=== PATIENT | female | born 1995 | race Caucasian/White ===

== ENCOUNTER → 2016-09-23 | Outpatient (CLI) | payer BC ==
[~2016-09-23] MED LIST: CYCL10TA9 PO; FERR-54 PO; HYDR-3812 PO; MULT-301 PO
--- OUTSIDE RECORDS SUMMARY | 2016-09-23 10:08 | XMS REPORT | Continuity of Care Document ---
Author Author [facility] Address Unknown Phone Unavailable Allergies Medications Problems Date Dx Coded Attending Type Code Diagnosis Diagnosed By 08/16/2014 RASHIDA TORRES APRN 461.9 SINUSITIS ACUTE 08/16/2014 RASHIDA TORRES APRN 487.1 INFLUENZA 08/16/2014 TONIA PEARSON APRN 461.9 SINUSITIS ACUTE 08/16/2014 TONIA PEARSON APRN 487.1 INFLUENZA 09/28/2014 TONIA PEARSON APRN 614.9 UNSPECIFIED INFLAMMATORY DISEASE OF FEMALE PELVIC ORGANS AND TISSUES 09/28/2014 TONIA PEARSON APRN 625.9 PELVIC PAIN 09/28/2014 TONIA PEARSON APRN V74.5 STD SCREEN 11/09/2014 TONIA PEARSON APRN V25.01 CONTRACEPTION - ORAL CONTRACEPTION Procedures Code [place] [address] INFLUENZA A & B (IN-HOUSE) 08/16/2014 95216 TEST, URINE (IN-HOUSE) 11/09/2014 Results Encounters ACCT No. Visit Date/Time Discharge Status Pt. Type Provider Facility Loc./Unit Complaint [id number] 11/09/2014 14:27:00 11/09/2014 23: 59:59 CLS Outpatient TONIA PEARSON APRN [id number] 08/16/2014 14:33:00 08/16/2014 23: 59:59 CLS Outpatient RASHIDA TORRES APRN
--- NOTE | 2016-09-23 14:20 | Diagnostic Imaging Report ---
Transabdominal and transvaginal pelvic ultrasound. INDICATION: Secondary amenorrhea. FINDINGS: The uterus is 6.5 x 4.5 x 3.2 cm. The endometrial stripe is normal in thickness at 7 mm. Small amount of fluid is seen in the pelvis. The right ovary is 4.5 x 2.8 x 2.4 cm. The left ovary is 3.6 x 3.2 x 1.9 cm. Multiple follicles are seen. Arterial and venous waveforms are noted in both ovaries. IMPRESSION: Nonspecific small amount of free fluid is seen in the pelvis. Dictated by: Dictated on workstation # [id number]
== END ==
LOC: RAD 10:04
PROVIDERS: ATTEND Obstetrics & Gynecology
DX: N91.1 Secondary amenorrhea (principal)
CPT/HCPCS: 76830; 76856